=== PATIENT | male | born 2000 | race Caucasian/White ===

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

== ENCOUNTER 2019-02-19 07:59 | Day surgery (SDC) | payer SELFPAY ==
[2019-02-19] VITALS (10 sets, daily range): BP systolic 100–117; BP diastolic 54–94; PULSE 49–78; RESP 16; TEMP 36.5–36.7; O2SAT 96–100; BMI 21.9
[2019-02-19] MEDS: Cefazolin 2 GM in 0.9% Normal Saline 100 ML IV (09:12)
[2019-02-19] MEDS: Bupivacaine Mpf 0.5% 30 ML VIAL (09:30)
--- NOTE | 2019-02-19 09:30 | RAD_ITS ---
STUDY: X-RAY - LEFT ANKLE REASON FOR EXAM: Hardware removal. TECHNIQUE: A single intraoperative view of the ankle. COMPARISON: Intraoperative views 02/26/2018. FINDINGS: There is removal of the orthopedic plate and screws from the distal fibula without evidence of complication. There is syndesmotic fixation. 21 seconds of fluoroscopy time was used. Electronically Signed: Santo Baez MD at 11:14 EDT Tel , Service support , RAD/Ankle 2 Views
--- NOTE | 2019-02-19 10:28 | PCM.DC.ORTHO ---
Discharge Activity: May Not Drive, May not drive while taking narcotic pain medications., May Not Shower, Use Walker, Use Crutches Ice area for (Minutes): 20 - apply ice behind left knee 20 minutes of each hour while awake Weight Bearing Status: Partial weight bearing - weightbearing as tolerated in cam walker boot Keep extremity elevated above heart level: Operative Extremity Call your doctor if your incision/area has: Sudden Increased Bleeding Call your doctor if you observe: Fever of 101 or Higher, Shortness of breath, Dizziness, Chest pain, Prolonged hiccoughing, Increased palpitations (irregular heartbeat), Calf discomfort, Uncontrolled pain Cleanse incision/area with: Keep Dressing Clean & Dry Allergies/Adverse Reactions: Allergies No Known Allergies Allergy (Verified 02/15/19 08:13) Medications to take at Discharge Acetaminophen/Codeine #3 [Tylenol#3] 1 tab PO Q4H PRN PRN 7 Days #30 tab 02/19/19 The following prescriptions were given: Acetaminophen/Codeine #3 [Tylenol#3] 1 tab PO Q4H PRN PRN 7 Days #30 tab PRN Reason: Pain Primary Care Physician: Husam Oneil MD [Primary Care Provider] - Test Results: Test results from this visit will be discussed in further detail at your follow-up appointment, if applicable. Please Follow Up With: Lyubov Gomez DPM - Please follow up at your previously scheduled post operative appointment Proposed Discharge Date: 02/19/19
--- NOTE | 2019-02-19 10:31 | DCINST_ITS ---
Discharge Activity: May Not Drive, May not drive while taking narcotic pain medications., May Not Shower, Use Walker, Use Crutches Ice area for (Minutes): 20 - apply ice behind left knee 20 minutes of each hour while awake Weight Bearing Status: Partial weight bearing - weightbearing as tolerated in cam walker boot Keep extremity elevated above heart level: Operative Extremity Call your doctor if your incision/area has: Sudden Increased Bleeding Call your doctor if you observe: Fever of 101 or Higher, Shortness of breath, Dizziness, Chest pain, Prolonged hiccoughing, Increased palpitations (irregular heartbeat), Calf discomfort, Uncontrolled pain Cleanse incision/area with: Keep Dressing Clean & Dry Allergies/Adverse Reactions: Allergies No Known Allergies Allergy (Verified 02/15/19 08:13) Medications to take at Discharge Acetaminophen/Codeine #3 [Tylenol#3] 1 tab PO Q4H PRN PRN 7 Days #30 tab 02/19/19 The following prescriptions were given: Acetaminophen/Codeine #3 [Tylenol#3] 1 tab PO Q4H PRN PRN 7 Days #30 tab PRN Reason: Pain Primary Care Physician: Husam Oneil MD [Primary Care Provider] - Test Results: Test results from this visit will be discussed in further detail at your follow- up appointment, if applicable. Please Follow Up With: Lyubov Gomez DPM - Please follow up at your previously scheduled post operative appointment Proposed Discharge Date: 02/19/19
--- NOTE | 2019-02-19 10:31 | PCM.OPRPT ---
Report of Operation Date of Procedure: 02/19/19 Pre-Operative Diagnosis: L ankle painful retained hardware Post-Operative Diagnosis: same Surgery/Procedure Performed:: L ankle removal of hardware, deep Description of Surgical Findings:: see dictation glove turner and former automatic: Audrey Kaur Type of Anesthesia:: Local MAC Estimated Blood Loss (mL): minimal Description of Procedure: Indications: Pt is a 18 yo M who sustained a L ankle fracture that was internally fixed by another provider in 2018. He presented to my clinic last week with complaints of painful hardware of his lateral ankle. No injuries or concerns with skin/soft tissue. He presents today for surgical intervention and removal of hardware. All risks, complications, and alternatives were discussed with the patient, and the patient signed an informed consent. No guarantees were given. Procedure: On 02/19/2019 Emre Lawrence was visually and verbally identified in the preoperative holding area. The consent form was again reviewed with the patient, as were all risks, complications, and alternatives and the patient wished to proceed with the proposed surgery. The left ankle was marked as the correct operative extremity. The patient was brought to the operating room and placed on the operating room table in the normal SUPINE position. After induction by anesthesia, a surgical time out was performed and all present were in agreement. a pneumatic midcalf tourniquet was then placed. At this time the left lower extremity was prepped and draped in the usual sterile fashion. after exsanguination with an esmarch the tourniquet was inflated to 250 mmHg. At this time attention was directed to the left lateral ankle. Using a #15 blade a longitudinal incision was made over the previous surgical scar.The incision was bluntly carried deep through the subcutaneous tissues with careful attention paid to all bleeders, which were clamped and tied or bovied as necessary. All vital neurovascular structures were retracted. The hardware was identified and removed without incident. As the medial button of the Tightrope did not cause him pain I did not remove this. The screw holes were curetted and the incision was flushed with copious amounts of normal sterile saline. Closure was initiated. 3.0 vicryl was used for deep tissues and subcutaneous tissue. 3.0 prolene was used for skin. a total of 12 cc 0.5% marcaine plain was injected at the surgical site adaptic and dry sterile dressings were applied to the incision along with a light compressive bandage. Patient has a cam walker boot which he will wearing WBAT until suture removal. Total tourniquet time was 43 minutes with immediate capillary refill noted to all digits upon deflation. The patient tolerated the procedure and anesthesia well. The patient was then transported to the postanesthesia care unit by a member of the anesthesia team and myself with all vital signs stable and neurovascular status of the left lower extremity equal to pre-operative levels. At the end of the case all sponge, needle and instrument counts were found to be correct. - Complications none - Admit VTE Documentation VTE Present on Admission: No VTE Mechan Device Prophylaxis: SCD's, Knee High SADIA Hose VTE Pharm Prophylaxis ordered?: Yes
[2019-02-19] MEDS: Ketorolac 15 MG/ML Vial IV (10:37)
--- NOTE | 2019-02-19 10:38 | OP.PCM_ITS ---
Report of Operation Date of Procedure: 02/19/19 Pre-Operative Diagnosis: L ankle painful retained hardware Post-Operative Diagnosis: same Surgery/Procedure Performed:: L ankle removal of hardware, deep Description of Surgical Findings:: see dictation production editor: Audrey Kaur Type of Anesthesia:: Local MAC Estimated Blood Loss (mL): minimal Description of Procedure: Indications: Pt is a 18 yo M who sustained a L ankle fracture that was internally fixed by another provider in 2018. He presented to my clinic last week with c omplaints of painful hardware of his lateral ankle. No injuries or concerns with skin/soft tissue. He presents today for surgical intervention and removal of hardware. All risks, complications, and alternatives were discussed with the patient, and the patient signed an informed consent. No guarantees were given. Procedure: On 02/19/2019 Emre Lawrence was visually and verbally identified in the preoperative holding area. The consent form was again reviewed with the patient, as were all risks, complications, and alternatives and the patient wished to proceed with the proposed surgery. The left ankle was marked as the correct operative extremity. The patient was brought to the operating room and placed on the operating room table in the normal SUPINE position. After induction by anesthesia, a surgical time out was performed and all present were in agreement. a pneumatic midcalf tourniquet was then placed. At this time the left lower extremity was prepped and draped in the usual sterile fashion. after exsanguination with an esmarch the tourniquet was inflated to 250 mmHg. At this time attention was directed to the left lateral ankle. Using a #15 blade a longitudinal incision was made over the previous surgical scar.The incision was bluntly carried deep through the subcutaneous tissues with careful attention paid to all bleeders, which were clamped and tied or bovied as necessary. All vital neurovascular structures were retracted. The hardware was identified and removed without incident. As the medial button of the Tightrope did not cause him pain I did not remove this. The screw holes were curetted and the incision was flushed with copious amounts of normal sterile saline. Closure was initiated. 3.0 vicryl was used for deep tissues and subcutaneous tissue. 3.0 pro vernon was used for skin. a total of 12 cc 0.5% marcaine plain was injected at the surgical site adaptic and dry sterile dressings were applied to the incision along with a light compressive bandage. Patient has a cam walker boot which he will wearing WBAT until suture removal. Total tourniquet time was 43 minutes with immediate capillary refill noted to all digits upon deflation. The patient tolerated the procedure and anesthesia well. The patient was then transported to the postanesthesia care unit by a member of the anesthesia team and myself with all vital signs stable and neurovascular status of the left lower extremity equal to pre-operative levels. At the end of the case all sponge, needle and instrument counts were found to be correct. - Complications none - Admit VTE Documentation VTE Present on Admission: No VTE Mechan Device Prophylaxis: SCD's, Knee High SADIA Hose VTE Pharm Prophylaxis ordered?: Yes
--- NOTE | 2019-02-19 10:43 | RAD_ITS ---
STUDY: X-RAY - LEFT ANKLE REASON FOR EXAM: Male, 18 years old. Postoperative TECHNIQUE: 3 view(s) of the ankle. COMPARISON: None. FINDINGS: Metallic fixation tab abutting the medial margin of the distal tibial metaphysis, overlying the location of the transverse band fixation. Distal fibular plate and screw fixation removed. Osseous structures intact. Ankle mortise articulated. RAD/Ankle min 3 Views IMPRESSION: Status post fibular hardware removal as described above. Electronically Signed: Jose Aguilar MD at 16:59 EDT Tel , Service support ,
== END 2019-02-19 12:05 | disposition home or self-care (01) ==
LOC: SDC 08:02 → AC 08:03
PROVIDERS: Family Provider Orthopaedic Surgery; PCP Orthopaedic Surgery; Referring Provider Podiatrist Foot & Ankle Surgery; Visit Provider Podiatrist Foot & Ankle Surgery
PROC: (CPT 20680; principal; 2019-02-19 09:15)
DX: T84.84XA Pain due to internal orthopedic prosthetic devices, implants and grafts, initial encounter (principal); Y79.3 Surgical instruments, materials and orthopedic devices (including sutures) associated with adverse incidents; Y92.9 Unspecified place or not applicable
CPT/HCPCS: 01480; 20680; 73600; 73610; 76000; J7120; J2405